=== PATIENT | male | born 2000 | race Caucasian/White ===

== ENCOUNTER 2021-11-06 11:47 | Emergency (ER) | payer MEDICAID ==
[~2021-11-06] VITALS: Ht 175.3 cm; Wt 63.5 kg
[2021-11-06 11:47] VITALS: BP 140/90
--- NOTE | 2021-11-06 11:47 | NUR ---
21 Y/O MALE BIBA C/O SOB X1 DAY, DENIED FEVER, CHILLS, NVD NO MEDICAL HISTORY NKDA
--- NOTE | 2021-11-06 11:47 | NUR ---
BIBA TO ER BED 2
--- NOTE | 2021-11-06 12:26 | NUR ---
Patient discharged with v/s stable. Written and verbal after care instructions given and explained. Patient verbalized understanding. Ambulatory with steady gait. All questions addressed prior to discharge. Advised to follow up with PMD.
== END 2021-11-06 12:26 | disposition home or self-care (01) ==
LOC: MED 11:47
DX: R06.02 Shortness of breath (principal); J45.909 Unspecified asthma, uncomplicated
CPT/HCPCS: 99283

== ENCOUNTER 2021-11-11 22:40 | Emergency (ER) | payer MEDICAID ==
[~2021-11-11] VITALS: Ht 178.6 cm; Wt 62.7 kg
[2021-11-11 22:54] VITALS: BP 127/79
--- NOTE | 2021-11-11 22:58 | NUR ---
pt sent to lobby.
== END 2021-11-11 23:28 | disposition left against medical advice (07) ==
LOC: MED 22:40
DX: M79.604 Pain in right leg (principal); M79.605 Pain in left leg; Z53.21 Procedure and treatment not carried out due to patient leaving prior to being seen by health care provider